=== PATIENT | female | born 2000 | race Caucasian/White ===

== ENCOUNTER 2018-01-18 11:28 | Emergency (ER) | payer OTHER ==
[2018-01-18 11:35] VITALS: BP 121/81; BMI 18.8
--- NOTE | 2018-01-18 12:08 | ED.ABDFE ---
HPI - Time seen Time seen: 12:10 - PCP Primary Care Physician: maged - Complaint Chief Complaint:: pt stated she has been vomiting blood and having abd pain. she has been taking meds for hployri for 8 days - Source History Provided: Patient - Mode of arrival Mode of Arrival: Ambulatory - Timing Onset of Chief Complaint: 01/17/18 PMH - PMH Past Medical History: Yes Past Medical History: Anemia Past Surgical History: No - Family History History of Family Medical Conditions: Yes Family Medical History: Hypertension - Social History Does patient currently use any type of tobacco product: No Have you used tobacco products in the last 12 months: No Type of Tobacco Use: None Does any household member use tobacco: No Alcohol Use: None Do you use any recreational Drugs:: No Lives With: Family Lives Where: Home - infectious screening In the last 2 months have you had wt loss of >10#?: NO Have you had fever, night sweats or hemotysis?: No Have you traveled outside the country in the last 6 months?: No Isolation: Standard PE - Vital Signs Vitals: Temperature 98.7 F Pulse Rate 98 Respiratory Rate 18 Blood Pressure 121/81 O2 Sat by Pulse Oximetry 100 ROR - Labs Reviewed Result Diagrams: 01/18/18 12:16 01/18/18 12:16 Laboratory: WBC 12.7 X10^3/uL (3.6-10.0) H 01/18/18 12:16 RBC 5.44 X10^6/uL (3.5-5.4) H 01/18/18 12:16 Hgb 9.8 g/dL (12.0-16.0) L 01/18/18 12:16 Hct 32.9 % (36.0-47.0) L 01/18/18 12:16 MCV 60.4 fL (80.0-100.0) L 01/18/18 12:16 MCH 18.0 pg (27.0-34.0) L 01/18/18 12:16 MCHC 29.8 g/dL (33.0-35.0) L 01/18/18 12:16 RDW 19.0 % (11.6-16.5) H 01/18/18 12:16 Plt Count 309 X10^3/uL (150.0-450.0) 01/18/18 12:16 Plt Count Comment Adequate (ADEQUATE) 01/18/18 12:16 MPV 9.2 fL (7.4-11.0) 01/18/18 12:16 Neut % (Auto) 87.5 % (42.0-75.0) H 01/18/18 12:16 Lymph % (Auto) 5.1 % (21.0-51.0) L 01/18/18 12:16 [place] % (Auto) 5.7 % (0.0-13.0) 01/18/18 12:16 Eos % (Auto) 0.9 % (0.9-2.9) 01/18/18 12:16 Baso % (Auto) 0.8 % (0.2-1.0) 01/18/18 12:16 Neut # (Auto) 11.1 x10^3/uL (2.2-4.8) H 01/18/18 12:16 Lymph # (Auto) 0.6 X10^3/uL (1.3-2.9) L 01/18/18 12:16 [place] # (Auto) 0.7 x10^3/uL (0.3-0.8) 01/18/18 12:16 Eos # (Auto) 0.1 x10^3/uL (0.0-0.2) 01/18/18 12:16 Baso # (Auto) 0.1 X10^3/uL (0.0-0.1) 01/18/18 12:16 Absolute Nucleated RBC 0.0 /100WBC 01/18/18 12:16 Plt Morphology Comment Normal (NORMAL) 01/18/18 12:16 RBC Morphology Abnormal (NORMAL) A 01/18/18 12:16 Hypochromasia 3+ A 01/18/18 12:16 Anisocytosis 1+ A 01/18/18 12:16 Microcytosis 2+ A 01/18/18 12:16 Sodium 138 mmol/L (136-145) 01/18/18 12:16 Corrected Sodium TNP 01/18/18 12:16 Potassium 3.9 mmol/L (3.5-5.1) 01/18/18 12:16 Chloride 101 mmol/L (98-107) 01/18/18 12:16 Carbon Dioxide 26.0 mmol/L (21-32) 01/18/18 12:16 BUN 8 mg/dL (7-18) 01/18/18 12:16 Creatinine 0.80 mg/dL (0.55-1.02) 01/18/18 12:16 Est GFR (MDRD) Af Amer > 60 (>60) 01/18/18 12:16 Est GFR (MDRD) Non-Af > 60 (>60) 01/18/18 12:16 Glucose 105 mg/dL (65-99) H 01/18/18 12:16 Calcium 8.9 mg/dL (8.5-10.1) 01/18/18 12:16 - Diagnosis Discharge Problem: Abdominal pain, Nausea & vomiting - Discharge Plan Condition: Stable Prescriptions: Ondansetron [Zofran ODT 8 mg] 8 mg PO Q8H PRN #12 tab PRN Reason: Nausea/Vomiting - Follow ups/Referrals Follow ups/Referrals: [facility],None [Primary Care Provider] - 3 days - Instructions Instructions: Abdominal Pain, Adult, [id number], Nausea and Vomiting, Adult, [id number] Additional Instructions: RETURN TO ED IF WORSE.
--- NOTE | 2018-01-18 12:42 | RAD ---
HISTORY: Abdominal pain. History of vomiting blood. Study: Upright PA chest with supine and upright abdominal images Comparison: None Findings: The lungs are clear. The heart size is normal. No acute bony abnormalities are identified Examination of the abdomen demonstrates scattered large and small bowel gas. No evidence of bowel ob struction or pneumoperitoneum is noted. A navel ring is present. Spina bifida occulta is noted at S 1. Minimal convex right lumbar scoliosis is noted. IMPRESSION: 1. No radiographic evidence of acute cardiopulmonary disease. 2. No evidence of bowel obstruction or pneumoperitoneum. Reported By:
[2018-01-18 12:47] LABS: BASOPHILS # (AUTO) 0.1 X10^3/uL (0.0-0.1); BASOPHILS % (AUTO) 0.8 % (0.2-1.0); EOSINOPHILS # (AUTO) 0.1 x10^3/uL (0.0-0.2); EOSINOPHILS % (AUTO) 0.9 % (0.9-2.9); HEMATOCRIT 32.9 % (36.0-47.0); HEMOGLOBIN 9.8 g/dL (12.0-16.0); LYMPHOCYTES # (AUTO) 0.6 X10^3/uL (1.3-2.9); LYMPHOCYTES % (AUTO) 5.1 % (21.0-51.0); MEAN CORPUSCULAR HGB CONC 29.8 g/dL (33.0-35.0); MEAN CORPUSCULAR VOLUME 60.4 fL (80.0-100.0); MEAN PLATELET VOLUME 9.2 fL (7.4-11.0); MONOCYTES # (AUTO) 0.7 x10^3/uL (0.3-0.8); MONOCYTES % (AUTO) 5.7 % (0.0-13.0); NEUTROPHILS # (AUTO) 11.1 x10^3/uL (2.2-4.8); NEUTROPHILS % (AUTO) 87.5 % (42.0-75.0); PLATELET COUNT 309 X10^3/uL (150.0-450.0); RED BLOOD COUNT 5.44 X10^6/uL (3.5-5.4); WHITE BLOOD COUNT 12.7 X10^3/uL (3.6-10.0)
[2018-01-18] MEDS ORDERED: ZOFRAN INJ 4 MG VIAL IM ONE (12:49)
[2018-01-18] MEDS ORDERED: ZOFRAN INJ 4 MG VIAL ONE (12:52)
[2018-01-18 13:00] LABS: PLATELET MORPHOLOGY COMMENT NORMAL (NORMAL)
[2018-01-18 13:01] LABS: ANISOCYTOSIS 1+; BLOOD UREA NITROGEN 8 mg/dL (7-18); CALCIUM 8.9 mg/dL (8.5-10.1); CHLORIDE 101 mmol/L (98-107); HYPOCHROMASIA 3+; MICROCYTOSIS 2+; SODIUM 138 mmol/L (136-145); eGFR BLACK RACES > 60 (>60); eGFR NON BLACK RACES > 60 (>60)
[2018-01-18 13:23] LABS: BILIRUBIN,URINE NEGATIVE (NEGATIVE); BLOOD/HEMOGLOBIN,URINE 4+ (NEGATIVE); GLUCOSE, URINE NEGATIVE (NEGATIVE); KETONES,URINE NEGATIVE (NEGATIVE); LEUKOCYTE ESTERASE ,URINE 1+ (NEGATIVE); NITRITES,URINE NEGATIVE (NEGATIVE); PROTEIN,URINE 1+ (NEGATIVE); UROBILINOGEN,URINE NORMAL (NORMAL)
[2018-01-18 13:32] LABS: APPEARANCE,URINE CLOUDY (CLEAR); COLOR,URINE YELLOW (YELLOW)
[2018-01-18 13:35] LABS: AMORPHOUS SEDIMENT,UR 1+ /HPF (NEGATIVE); BACTERIA,URINE TRACE /HPF (NEGATIVE); SQUAMOUS EPITHELIAL CELL,UR MODERATE /HPF (NEGATIVE)
[2018-01-18 13:36] LABS: MUCUS,URINE MODERATE /HPF (NEGATIVE)
[2018-01-18 17:34] LABS: ALANINE AMINOTRANSFERASE 24 Units/L (12-78); ALBUMIN 4.6 g/dL (3.4-5.0); ALKALINE PHOSPHATASE 52 Units/L (45-150); AMYLASE 70 Units/L (25-115); ASPARTATE AMINO TRANSFERASE 28 Units/L (15-37); LIPASE 178 Units/L (73-393); TOTAL PROTEIN 9.6 g/dL (6.4-8.2)
== END 2018-01-18 13:46 | disposition home or self-care (01) ==
LOC: ER 11:59
DX: R10.84 Generalized abdominal pain (principal); R11.2 Nausea with vomiting, unspecified
CPT/HCPCS: 36415; 74022; 80053; 81001; 82150; 83690; 85025; 96372; 99283; J2405